=== PATIENT | male | born 1960 | race Caucasian/White ===

== ENCOUNTER → 2018-10-03 13:28 | Outpatient (CLI) | payer MEDICARE ==
--- NOTE | 2018-10-07 09:53 | EC ---
PATIENT:JACKELIN BARTHOLOMEW DATE OF SERVICE: 10/03/18 SEX: M MEDICAL RECORD: [id number] DATE OF : 62 [facility] AGE OF PATIENT: 58 ADMISSION DATE: 10/03/18 REFERRING PHYSICIAN: INTERPRETING PHYSICIAN: BETHANIE VELÁZQUEZ MD ECHOCARDIOGRAM REPORT ECHO CHARGES 4 ECHO COMPLETE Date: 10/03/18 CLINICAL DIAGNOSIS: HX OF CHF,ICD,CARDIOMYOPATHY ECHOCARDIOGRAPHIC MEASUREMENTS (adult normal given) AC root (d.<3.7cm) 3.3 cm LV Septum d (<1.2 cm> 1.3 cm Valve Excursion 1.8 cm LV Septum (systole) 1.5 cm Left Atria (s.<4.0cm> 4.1 cm LVPW d(<1.2cm) 1.5 cm RV (d.<2.3cm) 3.7 cm LVPW (sytole) 1.7 cm LV diastole(<5.6CM) 4.9 cm MV E-F(>70mm/sec) cm LV systole 3.6 cm LVOT Diameter 2.2 cm MV exc.(>10mm) 1.5 cm Est.ejection fraction (50-75%) % DOPPLER: LVIT cm/sec A 88.0 cm/sec E 57.0 cm/sec LA cm/sec RVSP 32 mmHg LVOT 106 cm/sec AOP1/2T m/s Asc. Ao 106 cm/sec RVOT cm/sec RA cm/sec PA cm/sec AV Gradient Peak 4.52 mmHg AV Mean 2.40 mmHg AV Area 3.6 cm MV Gradient Peak 2.30 mmHg MV Mean 1.10 mmHg MV Area cm COMMENTS: Child Nurse: Carlos EVERETT Crane Hooker: 1 Dr. Velázquez TAPE# PACS Pericardial Effusion N DATE OF SERVICE: 10/03/2018 PROCEDURE: Echocardiogram. FINDINGS: 1. Left ventricular chamber size is within normal limits. Left ventricular systolic function is mildly depressed at 40% to 45%. 2. Left atrium is enlarged at 4.1 cm. Right atrium and right ventricular chamber sizes are as well mildly dilated. 3. Valvular structures have normal structure and motion. ECHOCARDIOGRAM REPORT [id number] JACKELIN BARTHOLOMEW 4. Doppler interrogation reveals mild mitral regurgitation, mild tricuspid regurgitation, no other valvular insufficiency or stenosis. Pulmonary systolic pressure is estimated at 32 mmHg. 5. No evidence of pericardial effusion or left ventricular thrombus. TRANSINT:[id number] Voice Confirmation ID: [id number] DOCUMENT ID: [id number] BETHANIE VELÁZQUEZ MD at 0953 CC: [id number] DICTATION DATE: 10/03/18 1414 AGRICULTURAL SERVICE TECHNICIAN: 10/03/18 1445 DEP CLI 10/03/18 [place] [id number] [place] [id number]
== END | disposition home or self-care (01) ==
LOC: D.HCCARDIO 13:28
PROVIDERS: ATTEND Internal Medicine Interventional Cardiology
DX: I50.9 Heart failure, unspecified (principal)

== ENCOUNTER 2018-10-16 10:56 | Outpatient (CLI) | payer MEDICARE ==
[~2018-10-16] VITALS: Ht 182.9 cm; Wt 95.5 kg
--- NOTE | ~2018-10-16 | HEMODYNAMI ---
PATIENT:JACKELIN BARTHOLOMEW MEDICAL RECORD: [id number] : 62 LOCATION:D.CAT ADMISSION DATE: 10/16/18 Generatedon:10/16/201814:27 Patient name: JACKELIN BARTHOLOMEW Patient #: [id number] SSN: : 1960 Date of study: 10/16/2018 Page: Of Hemodynamic Procedure Report Patient Data Patient Demographics Procedure consent was obtained First Name: JACKELIN Gender: Male Last Name: PUMA : 1960 [facility] Initial: HEATHER Age: 58 year(s) Patient #: [id number] Race: Unknown Additional ID: [id number] Contact details Address: [address] [place] [address] lane State: [place] City: [place] Zip code: [address] Past Medical History Allergies Allergen Reaction Date Comments Reported Other allergy 10/16/2018 PCN, TAPE, CODEINE Admission Admission Data Admission Date: 10/16/2018 Admission Time: 10:56 Height (in.): 72 BSA: 2.17 (m2) Height (cm.): 182.88 BMI: 28.4 (kg/m2) Weight (lbs.): 209.44 Weight (kg.): 95 Lab Results Lab Result Date: 10/16/2018 Lab Result Time: 0:00 Biochemistry Name Units Result Min Max BUN mg/dl 14 --(--*-)-- 7 18 Creatinine mg/dl 1.1 --(--*-)-- 0.6 1.3 eGFR ml/min 73.29409 *-(----)-- 90 120 NONAFRICAN CBC Name Units Result Min Max Hematocrit % 40.4 -*(----)-- 42 54 Hemoglobin g/dl 13.8 --(*---)-- 13.5 17.5 Procedure Procedure Types Cath Procedure Diagnostic Procedure PPM/ICD Permanent Pacer Generator Exg. Sedation Charges Moderate Sedation up to 15 minutes Procedure Description Procedure Date Procedure Date: 10/16/2018 Procedure Start Time: 13:56 Procedure End Time: 14:23 Procedure Staff Name Function Glen Ray MD Assisting physician Fernando Keys MD Performing Physician Jinny Dickson RN Nurse Angeles Whitaker RT Monitor Gabriella Uriostegui RT Scrub Procedure Data Cath Procedure Fluoroscopy Diagnostic fluoroscopy Total fluoroscopy Time: 0 time: 0 min min Estimated blood loss: 10 ml Procedure Complications No complications Procedure Medications Medication Administration Route Dosage 0.9% NaCl I.V. 100 ml/hr Oxygen etCO2 Nasal cannula 2 l/min Lidocaine 1% added to field 20 Vancomycin Topical 1 g Irrigation Vancomycin I.V.P.B 1 g Versed I.V. 2 mg Fentanyl I.V. 100 mcg Versed I.V. 2 mg Fentanyl I.V. 100 mcg Versed I.V. 2 mg Versed I.V. 2 mg Versed I.V. 2 mg Hemodynamics Rest BSA: 2.17 (m2) HGB: 13.8 (g/dl) O2 Consumption: Estimated: 249.65 (ml/min) O2 Co nsumption indexed: Estimated:115.05 (ml/min/m) Heart Rate: 62 (bpm) Snapshots Pre Cath Intra NCS Post Cath Vital Signs Time Heart Resp SPO2 etCO2 NIBP (mmHg) Rhythm Pain Sedation Rate (ipm) (%) (mmHg) Status Level (bpm) 13:27:39 91 12 100 34 149/103(139) Paced 0 (11) 10(A) , No pain 13:31:55 69 15 100 33.7 163/96(139) Paced 0 (11) 10(A) , No pain 13:36:15 84 12 100 35.2 164/105(139) Paced 0 (11) 10(A) , No pain 13:40:33 63 14 100 35.2 141/89(124) Paced 0 (11) 10(A) , No pain 13:44:47 62 16 100 29.9 154/88(127) Paced 0 (11) 10(A) , No pain 13:49:11 61 12 99 21.7 143/90(119) Paced 0 (11) 10(A) , No pain 13:53:25 59 16 99 38.2 150/85(126) Paced 0 (11) 10(A) , No pain 13:57:50 61 14 98 20.2 113/85(95) Paced 0 (11) 10(A) , No pain 14:01:53 79 15 97 39.7 129/86(111) Paced 0 (11) 10(A) , No pain 14:06:01 91 16 98 41.2 134/92(116) Paced 0 (11) 10(A) , No pain 14:10:17 60 17 98 39.7 109/70(81) Paced 0 (11) 10(A) , No pain 14:15:16 59 14 99 33.7 Measuring Paced 0 (11) 10(A) , No pain 14:18:12 60 17 98 37.5 133/66(108) Paced 0 (11) 10(A) , No pain 14:22:25 62 9 99 42.7 139/81(120) Paced 0 (11) 10(A) , No pain Medications Time Medication Route Dose Verified Delivered Reason Notes Effecti veness by by 13:30:49 0.9% NaCl I.V. 100 Fernando Jinny used for ml/hr LudmilaErasmo Dickson procedure RN 13:30:57 Oxygen etCO2 2 Fernando Jinny used for Nasal l/min St Erasmo Dickson procedure cannula RN 13:31:13 Lidocaine added 20ml Fernando Confucianist for local 1% to vial St Erasmo Ray MD anesthetic field x 2 MD 13:31:29 Vancomycin Topical 1 g Confucianist Confucianist used for Irrigation Wan Ray MD procedure 13:31:38 Vancomycin I.V.P.B 1 g Confucianist Confucianist Per Wan Ray MD physician 13:54:09 Versed I.V. 2 mg Confucianist Jinny for Wan Dickson sedation RN 13:54:21 Fentanyl I.V. 100 Confucianist Jinny for mcg Wan Dickson sedation RN 13:59:57 Versed I.V. 2 mg Confucianist Jinny for Wan Dickson sedation RN 14:00:02 Fentanyl I.V. 100 Confucianist Jinny for mcg Wan Dickson sedation RN 14:05:14 Versed I.V. 2 mg Confucianist Jinny for Wan Dickson sedation RN 14:09:28 Versed I.V. 2 mg Confucianist Jinny for Wan Dickson sedation RN 14:13:36 Versed I.V. 2 mg Confucianist Jinny for Bellairediana Dickson sedation credit collections analyst Log Time Note 12:22:09 Time tracking: Regular hours (M-F 7:00 - 5:00) 12:22:13 Plan of Care:Hemodynamics will remain stable., Cardiac rhythm will remain stable., Comfort level will be maintained., Respiratory function will remain adequate., Patient/ family verbilizes understanding of procedure., Procedure tolerated without complication., Recovers from procedure without complications.. 12:22:20 Procedure Status PPM/ Gen Change/ Lead Revision/ Temp. 12:23:15 Patient Weight : 209.44 lbs 12:23:28 Patient Height : 72 inches 12:24:11 Lab Result : Hemoglobin 13.8 g/dl 12:24:11 Lab Result : Hematocrit 40.4 % 12:24:11 Lab Result : eGFR NONAFRICAN 73.77778 ml/min 12:24:11 Lab Result : BUN 14 mg/dl 12:24:11 Lab Result : Creatinine 1.1 mg/dl 13:06:09 Jinny Dickson RN sent for patient. Start room use. 13:17:42 Patient received from Pre/Post Procedure Room to CCL 3 Alert and oriented. Tansferred to table in Supine position. 13:17:44 Signed procedure consent form obtained from patient. 13:17:45 Correct patient and procedure confirmed by team. 13:17:45 Warm blankets applied, and teena hugger turned on for patient comfort. 13:17:46 ECG and BP/O2 sat monitors applied to patient. 13:26:32 Vital chart was started 13:27:51 Rhythm: paced 13:27:52 Full Disclosure recording started 13:27:58 H&P Date Dictated: 10/16/2018 New H&P dictated by physician.. 13:28:00 Pre-op teaching completed and patient verbalized understanding. 13:28:00 Pre-procedure instructions explained to patient. 13:28:02 Family in patients room. 13:28:03 Patient NPO since Midnight. 13:28:24 Patient allergic to Other allergyPCN, TAPE, CODEINE 13:28:26 Is patient on blood thinner?No 13:28:28 Patient diabetic? No. 13:28:29 Is the patient allergic to Iodine/contrast media? No. 13:28:37 Previous problem with sedation/anesthesia? No ? 13:28:38 Snore? Yes 13:28:39 Sleep apnea? No 13:28:41 Opens mouth fully? Yes 13:28:41 Deviated septum? No 13:28:43 Sticks out tongue? Yes 13:28:49 Airway obstruction? Yes EMPHYSEMA 13:28:52 Dentures? Yes IN 13:28:56 Patient pain scale 0/10 ?. 13:28:59 IV patent on arrival in left hand with 0.9% NaCl at [facility]. 13:29:02 Lab results completed and on chart. 13:29:08 Left chest area was prepped with chlora-prep and draped in sterile fashion 13:29:09 Alarms reviewed by R. N. 13:29:10 Sharps counted by scrub and verified by R.N. 13:30:49 0.9% NaCl 100 ml/hr I.V. was administered by Jinny Dickson RN; used for procedure; 13:30:57 Oxygen 2 l/min etCO2 Nasal cannula was administered by Jinny Dickson RN; used for procedure; 13:31:10 [employer] furnish[employer] sales representative LISAGUMARO SURESHOE present for procedure. 13:31:13 Lidocaine 1% 20ml vial x 2 added to field was administered by Glen Ray MD; for local anesthetic; 13:31:15 Use device set WAN PPM 13:31:17 3-0 Vicryl Single Pack [id number] opened to sterile field. 13:31:17 2-0 Ticron Multipack ([id number]) opened to sterile field. 13:31:18 5-0 Monocryl PS2 [id number] opened to sterile field. 13:31:19 Cautery Pushbutton Pencil opened to sterile field. 13:31:19 Cautery Tip Mental Health Nurse opened to sterile field. 13:31:20 Mepilex Dressing ([id number]) opened to sterile field. 13:31:29 Vancomycin Irrigation 1 g Topical was administered by Glen Ray MD; used for procedure; 13:31:38 Vancomycin 1 g I.V.P.B was administered by Glen Ray MD; Per physician; 13:41:53 ARUN ROUSE DF1 [id number] opened to sterile field. 13:53:28 --------ALL STOP TIME OUT------ 13:53:29 Final Timeout: patient, procedure, and site verified with staff and physician. All members of the team are in agreement. 13:53:33 Left chest site verified by team. 13:53:39 Fire Safety Assessment: A--An alcohol-based skin anteseptic being used preoperatively., B--The operative or invasive procedure is being performed above the xiphoid process or in the oropharynx., C--Open oxygen or nitrous oxide is being used. 13:53:42 Physical assessment completed. ASA score P 2 - A patient with mild systemic disease as per Glen Ray MD. 13:53:47 Sedation plan: IV Moderate Sedation Medication:Versed, Fentanyl 13:54:04 Pre sharps counted by scrub and verified by RN: Sutures: 7; Sponges: 5; Stick needles: 2; Skin needles: 2; Blade: 1; Cautery: 1 13:54:06 Grounding pad site Left thigh. 13:54:08 Grounding pad site free from injury. 13:54:09 Versed 2 mg I.V. was administered by Jinny Dickson RN; for sedation; 13:54:21 Fentanyl 100 mcg I.V. was administered by Jinny Dickson RN; for sedation; 13:56:13 Procedure started. 13:56:33 Lidocaine 1% was administered to left subclavicular area by Glen Ray MD . 13:57:16 Baseline sample Acquired. 13:59:29 Incision made to left subclavicular area. 13:59:57 Versed 2 mg I.V. was administered by Jinny Dickson RN; for sedation; 14:00:02 Fentanyl 100 mcg I.V. was administered by Jinny Dickson RN; for sedation; 14:00:44 Generator pocket made/opened. 14:04:50 PPM Dual was removed.. 14:05:14 Versed 2 mg I.V. was administered by Jinny Dickson RN; for sedation; 14:05:16 PPM Dual was inserted subcutaneously to left chest. 14:05:19 Device pocket was irrigated with Ancef. 14:05:30 Atrial lead attachment was completed with 2-0 ticron. 14:05:34 Ventricular lead attachment was completed with 2-0 ticron. 14:05:37 Generator was sutured in place with 2-0 ticron. 14:09:28 Versed 2 mg I.V. was administered by Jinny Dickson RN; for sedation; 14:13:36 Versed 2 mg I.V. was administered by Jinny Dickson RN; for sedation; 14:14:25 Subcutaneous closure was completed with 3-0 vicryl. 14:14:30 Skin closure was completed with 5-0 monocryl. 14:16:26 Lt Chest incision was dressed with Mepilex dressing. 14:16:43 Procedure ended.(Physican Out) 14:17:08 Post sharps counted by scrub and verified by RN: Sutures: 7; Sponges: 5; Stick needles: 2; Skin needles: 2; Blade: 1; Cautery: 1 14:17:18 Fluoroscopy time 00.00 minutes. 14:17:22 Sharps counted by scrub and verified by R.N. 14:17:41 Post-op/insertion site Left Chest area dressed using a Mepilex dressing. 14:17:46 Post-procedure physical assessment completed. ASA score P 2 - A patient with mild systemic disease as per Glen Ray MD. 14:17:51 Post procedure rhythm: sinus rhythm , paced 14:17:53 Estimated blood loss: 10 ml 14:17:54 Post procedure instruction explained to patient.Patient verbalizes understanding. 14:17:55 Patient needs reinforcement of post procedure teaching. 14:18:18 Procedure type changed to Cath procedure, Diagnostic procedure, PPM/ICD, Permanent Pacer Generator Exg., Sedation Charges, Moderate Sedation up to 15 minutes 14:18:31 Procedure and supply charges have been captured, reviewed, submitted and are correct. 14:18:34 Procedure Complication : No complications 14:21:29 Parameters--Ventricular P/R Wave: 5.8mV. Current: ?mA; Threshold: .7V; Impedence: ?OHMS. 14:22:07 Parameters--Atrial P/R Wave: 2..6mV. Current: ?mA; Threshold: .6V; Impedence: ?OHMS. 14:22:39 Parameters-- Generator: Mode: AAIR/DDDR . Lower Rate: 60bpm. Upper Rate: 120bpm. 14:23:52 See physician's report for complete and final results. 14:23:52 Vital chart was stopped 14:23:54 Report given to Pre/Post Procedure Room. 14:23:56 Patient transfered to Pre/Post Procedure Room with Bed. 14:23:59 Full Disclosure recording stopped 14:23:59 Procedure ended. 14:24:03 End room use (Document Last) Device Usage Item Name Manufacture Quantity Catalog Hospital Part Current Minimal Lot# / Number Charge Number Stock Stock Serial# Code 2-0 Ticron Ethicon 7 [id number] 5 Multipack ([id number]) 3-0 Vicryl Ethicon 1 [id number] 5 Single Pack [id number] 5-0 Monocryl Ethicon 1 [id number] 840886 [id number] 5 PS2 Y495G Cautery Tip Microtek 1 [id number] 868140 [id number] [id number] 5 Mental Health Nurse [employer] Cautery Microtek 1 [id number] [id number] [id number] 5 Pushbutton [employer] Inc[employer] Pencil Mepilex Cardinal 1 [id number] 150719 [id number] 5 Dressing Health ([id number]) EVERA XT DR Medtronic 1 [id number] [id number] [id number] 5 [id number] MRI DF1 [id number] EXP: [id number] 10-30-2019 Signature Audit [place] Stage Time Signature Unsigned Intra-Procedure 10/16/2018 Angeles Whitaker 2:24:23 PM RT(R) RT(R) 10/16/2018 2:27:21 PM Intra-Procedure 10/16/2018 Angeles Whitaker 2:27:45 PM RT(R) Signatures Performing Physician : Signature : Fernando Keys MD Date : Time : Nurse : Jinny Dickson RN Signature : Date : Time : Monitor : Angeles Whitaker Signature : RT Date : Time : [address] [place] [address]
[2018-10-16] MEDS ORDERED: AMBIEN10 MG PO (11:14)
[2018-10-16] MEDS ORDERED: XANAX1 MG PO (11:14)
[2018-10-16] MEDS ORDERED: LISINOPRIL10 MG PO (11:14)
[2018-10-16] MEDS ORDERED: BETAPACE 80 MG80 MG PO (11:15)
[2018-10-16] MEDS ORDERED: PLAVIX75 MG PO (11:15)
[2018-10-16] MEDS ORDERED: LEXAPRO5 MG PO (11:19)
[2018-10-16] MEDS ORDERED: ZOCOR40 MG PO (11:20)
[2018-10-16] MEDS ORDERED: MOBIC7.5 MG PO (11:21)
[2018-10-16] MEDS ORDERED: BACLOFEN20 M1 PO (11:22)
[2018-10-16 11:44] VITALS: BP 157/93; Ht 182.9 cm; Wt 95.5 kg
[2018-10-16 11:44] LABS: HEMATOCRIT 40.4 % (42.0-54.0); HEMOGLOBIN 13.8 g/dL (13.5-17.5); MCH 29.9 pg (26.0-34.0); MCHC 34.2 g/dL (31.0-37.0); MCV 87.4 fL (80.0-100.0); MEAN PLATELET VOLUME 9.9 fL (7.4-10.4); RBC 4.62 10x6/uL (4.20-6.10); RDW 12.9 % (11.5-14.5); WBC 6.2 10x3/uL (4.8-10.8)
[2018-10-16 11:57] LABS: ANION GAP 12.2 mmol/L (8-16); CALCIUM 8.6 mg/dL (8.5-10.1); CARBON DIOXIDE 24.6 mmol/L (21.0-32.0); CREATININE - SERUM 1.1 mg/dL (0.6-1.3); POTASSIUM - SERUM 4.8 mmol/L (3.5-5.1)
[2018-10-16 12:13] LABS: APTT 30.6 SECONDS (22.8-39.4); INR 0.98 (0.85-1.17); PROTIME 12.5 SECONDS (11.6-15.0)
--- NOTE | 2018-10-16 14:40 | NUR ---
PHYSICIAN AT BEDSIDE TO UPDATE PATIENT AND FAMILY. PATIENT ARRIVED TO ROOM 4, PLACED ON CM. VSS. LEFT UPPER CHEST DRESSING IS CDI, NO S/S OF BLEEDING OR HEMATOMA.
[2018-10-16] MEDS ORDERED: ULTRAM50 MG PO (14:46)
--- NOTE | 2018-10-16 14:55 | NUR ---
PATIENT AWAKE, EATING TURKEY SANDWICH AND DRINKING COKE, NO N/V. VSS ON ROOM AIR. LEFT UPPER CHEST DRESSING IS CDI, NO S/S OF BLEEDING. NO C/O PAIN, NUMBNESS, OR TINGLING.
--- NOTE | 2018-10-16 15:25 | NUR ---
VSS ON ROOM AIR. LEFT UPPER CHEST DRESSING IS CDI, NO S/S OF BLEEDING. 100% PACED ON CM. IV REMOVED. WRITTEN AND VERBAL DISCHARGE INSTRUCTIONS GIVEN TO PATIENT AND FAMILY, BOTH VOICE UNDERSTANDING.
--- NOTE | 2018-10-16 15:35 | NUR ---
PATIENT TRANSPORTED VIA WHEELCHAIR TO CAR WITH FAMILY DRIVING, ALL BELONGINGS WITH PATIENT.
--- NOTE | 2018-10-30 07:19 | OP ---
PATIENT NAME: JACKELIN BARTHOLOMEW MEDICAL RECORD: [id number] :62 LOCATION:D.CAT ADMISSION DATE: SURGEON: GLEN BLAS MD DATE OF OPERATION: 10/16/2018 PREOPERATIVE DIAGNOSES: 1. End-of-life AICD. 2. Cardiomyopathy. 3. Coronary artery disease. 4. Hypertension. 5. Hyperlipidemia. 6. Paroxysmal atrial fibrillation. 7. Sick sinus syndrome. 8. CHF, undifferentiated. 9. Tobacco dependence syndrome. POSTOPERATIVE DIAGNOSES: 1. End-of-life AICD. 2. Cardiomyopathy. 3. Coronary artery disease. 4. Hypertension. 5. Hyperlipidemia. 6. Paroxysmal atrial fibrillation. 7. Sick sinus syndrome. 8. CHF, undifferentiated. 9. Tobacco dependence syndrome. PROCEDURE: Left subclavian vein AICD generator exchange. SURGEON: Glen Blas MD REPORT OF PROCEDURE: The patient's left chest was prepped and draped in sterile fashion. A 20 mL of 1% lidocaine with epinephrine was infused into the surrounding tissues. A transverse incision was made overlying the left chest and the subcutaneous pouch was penetrated. The AICD was sutured down and the suture was removed, allowing us to eviscerate the AICD out of the wound. We disconnected the 4 leads from the AICD and placed him on a new AICD, which was placed into the subcutaneous pouch. This was sutured into place with a #0 Ti-Cron. We then irrigated out the wound with antibiotic solution. The subcutaneous tissues were reapproximated with interrupted 3-0 Vicryl and the skin was closed with running subcutaneous 5-0 Monocryl. COMPLICATIONS: None. CONDITION: Stable. ANESTHESIA: Local MAC. BLOOD LOSS: Minimal. 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
== END 2018-10-16 15:35 ==
LOC: D.CATH 10:56
PROVIDERS: ATTEND Internal Medicine Interventional Cardiology
DX: Z45.02 Encounter for adjustment and management of automatic implantable cardiac defibrillator (principal); I11.0 Hypertensive heart disease with heart failure; I50.9 Heart failure, unspecified; I43 Cardiomyopathy in diseases classified elsewhere; I25.10 Atherosclerotic heart disease of native coronary artery without angina pectoris; E78.5 Hyperlipidemia, unspecified; I48.0 Paroxysmal atrial fibrillation; I49.5 Sick sinus syndrome; F17.290 Nicotine dependence, other tobacco product, uncomplicated; Z01.812 Encounter for preprocedural laboratory examination